=== PATIENT | female | born 1960 | race Caucasian/White ===

== ENCOUNTER 2019-03-24 11:50 | Inpatient (IN) ==
[2019-03-24] MEDS ORDERED: XYLOCAINE 1%/SOD BICARB 20 ML VIAL INFIL ONE (12:07)
[2019-03-24] MEDS ORDERED: DIPHTHERIA/TETANUS/PERTUSSIS 0.5 ML SYR/VIAL IM ONE (12:07)
[2019-03-24] MEDS ORDERED: SODIUM CHLORIDE 0.9% 1000ML 500 ML IV ONE (12:07)
[2019-03-24] MEDS ORDERED: KETOROLAC TROMETHAMINE 15 MG/ML VIAL IV STA (12:10)
[2019-03-24] MEDS ORDERED: ACETAMINOPHEN 500 MG TAB PO STA (12:10)
[2019-03-24] MEDS ORDERED: PIPERACILLIN/TAZOBACTAM 4.5 GM/120 ML BAG IV ONE (12:10)
[2019-03-24] MEDS ORDERED: PIPERACILL/TAZOBAC CONSULT ACTIVE PRN (12:10)
[2019-03-24 12:33] LABS: Basophils # (auto) 0.02 K/uL (0-0.2); Basophils % (auto) 0.2 %; Eosinophils # (auto) 0.39 K/uL (0-0.5); Eosinophils % (auto) 3.5 %; Hematocrit (blood only) 39.1 % (37-47); Hemoglobin 13.5 g/dL (12.0-16.0); Immature Granulocytes # (auto) 0.02 K/uL (0.00-0.02); Immature Granulocytes % (auto) 0.2 %; Lymphocytes # (auto) 1.63 K/uL (1.2-3.4); Lymphocytes % (auto) 14.8 %; Mean Corpuscular Hemoglobin 31.5 pg (25-34); Mean Corpuscular Hgb Conc 34.5 g/dL (32-36); Mean Corpuscular Volume 91.1 fL (80-100); Mean Platelet Volume 9.6 fL (7.4-10.4); Monocytes # (auto) 0.77 K/uL (0.11-0.59); Neutrophils # (auto) 8.17 K/uL (1.4-6.5); Neutrophils % (auto) 74.3 %; Platelet Count 278 K/uL (130-400); RDW Coefficient of Variation 13.7 % (11.5-14.5); RDW Standard Deviation 45.3 fL (36.4-46.3); Red Blood Count 4.29 M/uL (4.2-5.4)
[2019-03-24 12:50] LABS: BUN Creatinine Ratio 9.3 (10-20); Calcium 9.5 mg/dl (8.5-10.1); Creatinine Clr Calc Pharmacy 74.3 ml/min; Est GFR (African American) 80.6; Est GFR (Non-African American) 69.5; Potassium 3.7 mmol/L (3.5-5.1)
--- NOTE | 2019-03-24 13:10 | XRay Report ---
RIGHT SECOND FINGER 4 VIEWS CLINICAL HISTORY: Foreign body assessment. FINDINGS: 4 views of the right second finger are correlated with radiographs of the right hand dated 12/04/2012. The skeletal structures are well mineralized for age. No fracture is seen. Mild erosive ost eoarthritic change is identified involving the distal interphalangeal joint. Mild arthritic change is also seen at the proximal interphalangeal joint. Soft tissue edema is present throughout the finger. No radiodense foreign body is identified. No subcutaneous gas is seen. IMPRESSION: 1. Diffuse soft tissue edema is noted in the second finger with no acute bony abnormality identified. 2. No radiodense foreign body is seen. 3. Osteopenia and degenerative change as above. Electronically signed by: Kulwant Greene M.D. 03/24/2019 1:09 PM
[2019-03-24] MEDS ORDERED: VANCOMYCIN HCL 1,750 MG in SODIUM CHLORIDE 0.9% 500 ML IV ONE (13:30)
[2019-03-24] MEDS ORDERED: VANCOMYCIN CONSULT ACTIVE PRN (13:30)
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
[2019-03-24] MEDS ORDERED: ONDANSETRON INJ 2 MG/ML 2 ML VIAL IV PRN (15:19)
[2019-03-24] MEDS ORDERED: POLYETHYLENE (MIRALAX) 17 GM PACK PO PRN (15:19)
--- NOTE | 2019-03-24 15:47 | Pharmacy Report ---
Pharmacy Abx Initial Consult - Date of Service March 24, 2019 - Pharmacy Dosing Scope Date of Consult: 03/24/19 Consultation requested by: Kulwant Abrams PA-C Pharmacy is consulted to initiate Vancomycin IV dosing therapy, order appropriate labs and adjust drug dose/frequency. - Subjective The patient is a 58 year old F admitted on 03/24/19 14:17. - Objective Height: 5 ft 6 in Weight: 85.6 kg Vital Signs (Past 12hrs): Vital Signs Temp Pulse Pulse Resp BP BP Pulse Ox 03/24/19 15:29 36.6 C 78 18 120/71 98 03/24/19 15:05 84 20 124/80 97 03/24/19 14:07 86 20 144/98 H 94 03/24/19 12:56 85 20 140/90 98 03/24/19 11:52 36.5 C 110 H 18 155/91 H 98 Lab Results (24hrs): Laboratory Tests (24 Hours) 03/24/19 03/24/19 12:22 12:22 WBC 11.00 H Neut # (Auto) 8.17 H Creatinine 0.91 Est Cr Clr Drug Dosing 74.3 Micro Results: 03/24/19 13:26 Gram Stain - Pending Finger,Right Index Deep Wound Culture - Pending - Risk Factors for Resistance * Antimicrobial use within the last 90 days - received rx for Cephalexin 500mg PO TID from [facility] 3 days ago. - Assessment & Plan Assessment 58 year old F with a h/o Chron's disease who presents to the ED with complaints of worsening swelling and pain to her right index finger. 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 The pain and swelling began that evening and has increased since. She was to [facility] two days ago where she was given a prescription for Cephalexin 500mg PO TID. Symptoms have persisted. WBC 11, afebrile No baseline data for renal function, but no evidence of LORENZA. I&D was done in the ED, no hellen pus was noted. Wound culture pending Imaging does not show any signs of osteo involvement, but does show soft tissue swelling. Plan Vancomycin and Zosyn for treatment of right finger cellulitis Vancomycin IV * Estimated PK Parameters: Vd 0.7 L/kg, Stanislaw 0.066 hr-1, t1/2 10.5 hr * Loading dose: 1750 mg (20.4 mg/kg) x1 in ED * Maintenance dose: 1250 mg IV (14.6 mg/kg) every 14 hours * Goal trough level : 10 to 15 mcg/mL * Trough level will be ordered with 4th maintenance dose if drug therapy continues. Piperacillin/tazobactam * 4.5 g bolus administered over 30 minutes, then 3.375 g IV extended infusion every 8 hours for CrCl greater than 20 mL/min. Pharmacy will continue to follow and will adjust dose/frequency as necessary. Thank you.
[2019-03-24] MEDS: PIPERACILLIN/TAZOBACTAM 3.375 GM in DEXTROSE 5% 100 ML IV SCH (17:55)
[2019-03-24] MEDS: HEPARIN SOD 5,000 UNIT/0.5 ML VIAL SQ SCH (20:26)
[2019-03-24] MEDS: ACETAMINOPHEN 325 MG TAB PO PRN (23:01)
[2019-03-25] MEDS: PIPERACILLIN/TAZOBACTAM 3.375 GM in DEXTROSE 5% 100 ML IV SCH ×3 (01:32→17:53)
[2019-03-25] MEDS ORDERED: KETOROLAC TROMETHAMINE 15 MG/ML VIAL IV PRN (01:42)
[2019-03-25] MEDS ORDERED: IBUPROFEN 200 MG TAB PO PRN (01:42)
[2019-03-25] MEDS: VANCOMYCIN HCL 1,250 MG in SODIUM CHLORIDE 0.9% 250 ML IV SCH ×2 (03:27→17:46)
[2019-03-25] MEDS: LEVOTHYROXINE SODIUM 75 MCG TABLET PO SCH (05:44)
[2019-03-25 05:45] LABS: Basophils # (auto) 0.03 K/uL (0-0.2); Basophils % (auto) 0.4 %; Eosinophils # (auto) 0.36 K/uL (0-0.5); Eosinophils % (auto) 4.3 %; Hematocrit (blood only) 35.2 % (37-47); Hemoglobin 11.8 g/dL (12.0-16.0); Immature Granulocytes # (auto) 0.02 K/uL (0.00-0.02); Immature Granulocytes % (auto) 0.2 %; Lymphocytes # (auto) 1.32 K/uL (1.2-3.4); Lymphocytes % (auto) 15.8 %; Mean Corpuscular Hemoglobin 30.7 pg (25-34); Mean Corpuscular Hgb Conc 33.5 g/dL (32-36); Mean Corpuscular Volume 91.7 fL (80-100); Mean Platelet Volume 9.9 fL (7.4-10.4); Monocytes # (auto) 0.54 K/uL (0.11-0.59); Monocytes % (auto) 6.5 %; Neutrophils # (auto) 6.09 K/uL (1.4-6.5); Neutrophils % (auto) 72.8 %; Platelet Count 249 K/uL (130-400); RDW Coefficient of Variation 13.7 % (11.5-14.5); RDW Standard Deviation 45.6 fL (36.4-46.3); Red Blood Count 3.84 M/uL (4.2-5.4); White Blood Count 8.36 K/uL (4.8-10.8)
[2019-03-25 06:15] LABS: BUN Creatinine Ratio 8.2 (10-20); Bilirubin Direct 0.1 mg/dl (0-0.2); Calcium 9.2 mg/dl (8.5-10.1); Creatinine Clr Calc Pharmacy 67.6 ml/min; Est GFR (African American) 71.9; Est GFR (Non-African American) 62.1; Potassium 3.8 mmol/L (3.5-5.1)
[2019-03-25 06:26] LABS: Bilirubin,Total 0.5 mg/dl (0.2-1); Thyroid Stimulating Hormone 2.2 uIu/ml (0.300-4.500); Total Protein 6.7 gm/dl (6.4-8.2)
[2019-03-25] MEDS: TRAMADOL HCL 50 MG TABLET PO PRN ×2 (08:56→15:27)
[2019-03-25] MEDS: HEPARIN SOD 5,000 UNIT/0.5 ML VIAL SQ SCH ×2 (08:57→22:05)
[2019-03-25] MEDS: CITALOPRAM 40 MG TAB PO SCH (08:57)
[2019-03-25] MEDS: ACETAMINOPHEN 325 MG TAB PO PRN (13:05)
--- NOTE | 2019-03-25 19:56 | Hospitalist Progress Note ---
Date of Service March 25, 2019 Assessment & Plan (1) Cellulitis of finger: Soft tissue infection right index finger. No apparent trauma. No improvement despite a few days of cephalexin and 24 hours of IV vanco + piperacillin / tazobactam. May need surgical drainage. Consult Ortho. (2) DVT prophylaxis: Receiving SQ heparin. Ambulate. (3) Discharge planning issues: Anticipated discharge to home. Family Medicine follow-up with Dr. Bhavana Hdez. Subjective Recheck for infection right index finger. Patient seen in their room around 1420. Feels about the same. Persistent pain and swelling right index finger, no improvement since admission. No fever, chills, sweats. Review of Systems: GI- chronic loose stools, unchanged. Physical Exam Constitutional: no acute distress Musculoskeletal: Extremities: + hand abnormality (erythema and swelling right index finger) Results & Data Vital Signs (Past 12 Hours) Vital Signs Temp Pulse Resp BP Pulse Ox 03/25/19 15:11 37.2 C 94 H 18 159/92 H 94 03/25/19 07:59 36.7 C 84 18 132/79 96 Laboratory Results Microbiology 03/24/19 13:26 Finger,Right Index Gram Stain - Final 03/24/19 13:26 Finger,Right Index Deep Wound Culture - Preliminary No growth to date. (1) Cellulitis of finger Laterality: right Qualified Code(s): L03.011 - Cellulitis of right finger
[2019-03-26] MEDS: PIPERACILLIN/TAZOBACTAM 3.375 GM in DEXTROSE 5% 100 ML IV SCH ×2 (01:52→10:07)
[2019-03-26] MEDS: LEVOTHYROXINE SODIUM 75 MCG TABLET PO SCH (05:43)
[2019-03-26 05:49] LABS: Basophils # (auto) 0.06 K/uL (0-0.2); Basophils % (auto) 0.8 %; Eosinophils # (auto) 0.37 K/uL (0-0.5); Eosinophils % (auto) 5.2 %; Hematocrit (blood only) 34.2 % (37-47); Hemoglobin 11.3 g/dL (12.0-16.0); Immature Granulocytes # (auto) 0.01 K/uL (0.00-0.02); Immature Granulocytes % (auto) 0.1 %; Lymphocytes # (auto) 1.31 K/uL (1.2-3.4); Lymphocytes % (auto) 18.5 %; Mean Corpuscular Hemoglobin 30.2 pg (25-34); Mean Corpuscular Volume 91.4 fL (80-100); Mean Platelet Volume 9.4 fL (7.4-10.4); Monocytes # (auto) 0.48 K/uL (0.11-0.59); Monocytes % (auto) 6.8 %; Neutrophils # (auto) 4.85 K/uL (1.4-6.5); Neutrophils % (auto) 68.6 %; Platelet Count 274 K/uL (130-400); RDW Coefficient of Variation 13.6 % (11.5-14.5); RDW Standard Deviation 45.3 fL (36.4-46.3); Red Blood Count 3.74 M/uL (4.2-5.4); White Blood Count 7.08 K/uL (4.8-10.8)
[2019-03-26 06:18] LABS: BUN Creatinine Ratio 11.6 (10-20); Calcium 8.9 mg/dl (8.5-10.1); Creatinine Clr Calc Pharmacy 70.4 ml/min; Est GFR (African American) 75.6; Est GFR (Non-African American) 65.2; Potassium 3.8 mmol/L (3.5-5.1)
[2019-03-26] MEDS: VANCOMYCIN HCL 1,250 MG in SODIUM CHLORIDE 0.9% 250 ML IV SCH (07:53)
[2019-03-26] MEDS: CITALOPRAM 40 MG TAB PO SCH (08:52)
[2019-03-26] MEDS: TRAMADOL HCL 50 MG TABLET PO PRN ×2 (08:52→15:31)
[2019-03-26] MEDS: HEPARIN SOD 5,000 UNIT/0.5 ML VIAL SQ SCH (08:55)
--- NOTE | 2019-03-26 10:54 | Hospitalist Progress Note ---
Date of Service March 26, 2019 Assessment & Plan (1) Cellulitis of finger: Soft tissue infection right index finger vs possible gout. No apparent trauma. No improvement despite a few days of cephalexin and 48 hours of IV vanco + piperacillin / tazobactam. May need surgical drainage or aspiration for gram stain, cultures, crystals. Ortho consulted. Check serum uric acid. (2) DVT prophylaxis: Receiving SQ heparin. Ambulate. (3) Discharge planning issues: Anticipated discharge to home. Family Medicine follow-up with Dr. Bhavana Hdez. Subjective Recheck for pain and swelling of right index finger. Not much change overnight. No drainage. No fever. No nausea or vomiting. No change of bowel habits. Physical Exam Constitutional: no acute distress Musculoskeletal: Extremities: + hand abnormality (erythema and swelling right index finger) Results & Data Vital Signs (Past 12 Hours) Vital Signs Temp Pulse Resp BP Pulse Ox 03/26/19 07:42 36.9 C 75 14 122/80 94 (1) Cellulitis of finger Laterality: right Qualified Code(s): L03.011 - Cellulitis of right finger
[2019-03-26] MEDS: ACETAMINOPHEN 325 MG TAB PO PRN (13:56)
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
--- NOTE | 2019-03-26 21:22 | Discharge Summary ---
Date of Service Date of Admission: 03/24/19 Date of Discharge: 03/26/19 Admission HPI Per Admitting Provider Attending: Dr. Toure This is a 58-year-old female with past medical history of osteoarthritis, hypothyroidism, and Crohn's disease that presents with an infection of the right pointer finger. Etiology of infection is unknown. Patient increasing pain and presented to urgent care 3 days ago where they prescribed Keflex. She has not improved and so this morning she reported the emergency department. She is seen by Dr. Lemos who performed an I&D and only got blood and no pus. She was started on Zosyn and vancomycin. Blood cultures were obtained and are pending. Patient will be admitted to the medical unit for further IV treatment. Patient states that she has had no fever, chills, sweats, rigors. No nausea or vomiting. No diarrhea. Patient has not had any bleeding from the finger but has had increased swelling of the finger in all 3 joints of the finger. Due to the pain that she is experiencing she has been taking 400 mg of ibuprofen 2-3 times per day. Patient typically takes 400 mg of ibuprofen daily for osteoarthritis. Patient states that she has had no other recent illness and is never had an infection such as this before. She is a non-smoker and has 1-2 beers per year. She has no other acute complaints. Principal Diagnosis tenosynovitis right index finger Discharge Data Allergies Allergy/AdvReac Type Severity Reaction Status Date / Time No Known Allergies Allergy Verified 09/11/15 16:48 Consultations 03/24/19 13:42 ED Decision to Admit Stat 03/25/19 14:55 Consult Orthopedic Surgery Routine Hospital Course (1) Cellulitis of finger: Soft tissue infection right index finger vs possible gout. No apparent trauma. No improvement despite a few days of cephalexin and 48 hours of IV vanco + piperacillin / tazobactam. May need surgical drainage or aspiration for gram stain, cultures, crystals. Serum uric acid level normal. Ortho consulted. Clemmons to have tenosynovitis. Discharge on amoxicillin / clavulanic acid recommended. Follow-up with Ortho in clinic in 1-2 days. (2) DVT prophylaxis: Received SQ heparin. Ambulate. (3) Discharge planning issues: Discharge to home. Follow-up with [facility] in 1-2 days. Family Medicine follow-up with Dr. Bhavana Hdez. Total Time Total Time Spent Total Time Spent (In Minutes): 20 Discharge Plan Discharge Items Patient Disposition: Home - Self-Care Reason For Visit: INFECTION OF SECOND DIGIT OF RT HAND Discharge Diagnosis: tenosynovitis right index finger Activity: Resume your previous activity Non-emergency contact: Primary Care Provider, Hospitalist and Surgeon Call non-emergency contact if: you have any medication questions, your symptoms worsen and your temperature is above 101 Follow-up/Referrals: Bhavana Hdez DO [Primary Care Provider] - Mitchell Alexandra [Physician] - (Please call office for appointment in 1-2 days.) Diet: Regular Addtl Attending Provider Instructions: MEDICATION CHANGES: Take amoxicillin / clavulanic acid (Augmentin) twice a day with food for 1-2 weeks. SUMMARY OF TEST RESULTS: Wound culture was negative. Uric acid level was normal. RECOMMENDATIONS FOR FOLLOW-UP: Follow-up with Orthopedic Surgery as recommended. OTHER INSTRUCTIONS: Seek medical attention if you have: * temperature above 101 * chest pain or trouble breathing * abdominal pain, nausea, vomiting * diarrhea, dark stools or bloody stools * worsening pain or swelling of finger * any unanswered questions or concerns Call 911 if symptoms are severe. Please take good care of yourself. Call if you have any questions or problems. You can reach a [facility] hospitalist on duty at [facility] 24 hours a day by calling [phone]. My cell # is [phone]. Stand-Alone Forms: My [facility], Smoking Cessation Medications and DC Order Prescriptions: New amoxicillin-pot clavulanate 875-125 mg tablet 1 tab PO BID Qty: 14 RF: 1 Continued citalopram 40 mg tablet 40 mg PO DAILY RF: 0 levothyroxine 75 mcg tablet 75 mcg PO QAM RF: 0 Discontinued cephalexin 500 mg capsule 500 mg PO TID RF: 0 Discharge Orders: Discharge Order (Routine); Ordered 03/26/19 Ordered By: Karthikeyan Alamo/Other Patient Handouts: Amoxicillin Trihydrate Oral tablet Admission Data Admit Date/Time: 03/24/19 14:17 Attending Provider: Karthikeyan Aguilar Admit Provider: Sonny Toure Primary Care Provider: Bhavana Hdez Other Providers: Sonny Toure ; Calvin Chance Other Interventions: Discharge Summary Assessment (RN) Last Done: 03/26/19 17:23 DC Date/Time DO NOT enter until pt leaves facility: 03/26/19 17:59
[2019-03-26] MEDS ORDERED: VANCOMYCIN TROUGH ONE (21:30)
== END 2019-03-26 17:59 | disposition home or self-care (01) | DRG 558 ==
LOC: ED 11:50 → SUATTDRO 14:17 → 3E 14:17

== ENCOUNTER 2019-03-28 13:06 | Inpatient (IN) ==
[~2019-03-28 13:06] MED LIST: CEFAZOLIN 1000MG 1,000 MG/7.5 ML SYR IV SCH; CEFAZOLIN 2000MG 2,000 MG/15 ML SYR IV SCH; SODIUM CHLORIDE 0.9% 1,000 ML IV SCH
--- NOTE | 2019-03-28 14:49 | History and Physical Report ---
DATE OF ADMISSION: 03/28/2019 CHIEF COMPLAINT: Right index finger pain and swelling. HISTORY OF PRESENT ILLNESS: This 58-year-old white female presents to the office with complaints of right index finger pain and swelling. The patient noticed some redness in the finger a week ago. On , the finger developed significant swelling and pain. She was seen by her PCP at that time and placed on Keflex. Pain, redness, and streaking worsened. She was seen in the ED on Tuesday and was admitted for IV antibiotics. She was discharged on Tuesday with the understanding that she would see orthopedic surgery this week for reevaluation. She states that she did go to work last night at the [employer] and the finger developed additional areas of discoloration under the skin. She is having difficulty with motion. Right hand dominant. No prior history of similar episode. She is being admitted for a right index finger infection requiring incision and drainage today. No numbness or tingling, though she does note decreased subjective sensation to the index finger. No other fingers are involved. Radiographic imaging has been obtained. She is currently on Augmentin twice per day. PAST MEDICAL HISTORY: Significant for recent cold symptoms 2 weeks ago, anxiety, osteoarthritis, and hypothyroidism. PAST SURGICAL HISTORY: Appendectomy, bowel resection, cholecystectomy, hysterectomy, laparoscopy for adhesion removal, right hand little finger surgery. ALLERGIES: NKDA. CURRENT MEDICATIONS: Levothyroxine 75 mcg daily, Celexa 40 mg daily. FAMILY HISTORY: Noncontributory. SOCIAL HISTORY: The patient is single. No tobacco use. Occasional ETOH use. REVIEW OF SYSTEMS: A total of 10 systems are reviewed and are significant only for the above-stated conditions. PHYSICAL EXAMINATION: VITAL SIGNS: Height 168 cm, weight 88 kilograms. GENERAL: A well-developed, well-nourished middle-aged white female in no obvious discomfort. Sitting on a chair. Alert and oriented. SKIN: Warm and dry with good turgor. No rashes. The patient does have significant erythema and edema in the index finger. She has areas of pus visible underneath the skin. The DIP joint is significantly swollen. She has an eschar area present over the ulnar border of the DIP joint. Areas of pus are visible under the radial border. She has no other fingers involved. HEENT: Normocephalic, atraumatic. Eyes PERRLA, EOMI. Nares patent bilaterally without turbinate enlargement. Oropharynx without erythema or exudate. No lesions noted. Uvula midline. Oral mucosa moist. Fair dentition. Multiple teeth are missing. HEART: RRR. No MGR. LUNGS: Clear to auscultation bilaterally. No crackles, rhonchi or wheezing. Good air movement. ABDOMEN: Mildly obese. Bowel sounds present x4, soft, nontender. No organomegaly. No masses. MUSCULOSKELETAL: Right index finger has intact motion at the MCP and PIP joints. There is very limited motion at the DIP joint secondary to swelling. No pain with palpation over the hand or majority of the finger. She does have pain over the middle phalanx and distal phalanx with palpation. NEUROLOGIC: Cranial nerves II through XII are intact. Gross sensation is intact across each of the fingers of the right hand, though she has decreased subjective sensation across the index finger. Capillary refill is equal for each of the fingers. DATA: Radiographic imaging previously obtained shows significant osteoarthritic changes of the index finger. IMPRESSION: Right index finger infection. PLAN: Approximately 20 minutes was spent with the patient reviewing operative procedure, postoperative recovery, physical therapy requirements and medication use. Postoperative prescriptions will be decided based on her tissue cultures. She is n.p.o. at this point. She will be admitted with anticipation of surgery this evening. Preoperative Ancef dose has been ordered. MTDD
[2019-03-28 15:18] LABS: Hematocrit (blood only) 35.3 % (37-47); Hemoglobin 11.9 g/dL (12.0-16.0); Mean Corpuscular Hemoglobin 30.1 pg (25-34); Mean Corpuscular Volume 89.4 fL (80-100); Platelet Count 360 K/uL (130-400); RDW Coefficient of Variation 13.2 % (11.5-14.5); RDW Standard Deviation 43.4 fL (36.4-46.3); Red Blood Count 3.95 M/uL (4.2-5.4); White Blood Count 9.03 K/uL (4.8-10.8)
[2019-03-28 15:20] LABS: Mean Corpuscular Hgb Conc 33.7 g/dL (32-36)
[2019-03-28 15:46] LABS: BUN Creatinine Ratio 11.1 (10-20); Calcium 9.6 mg/dl (8.5-10.1); Creatinine Clr Calc Pharmacy 75.9 ml/min; Est GFR (African American) 82.8; Est GFR (Non-African American) 71.4; Potassium 3.5 mmol/L (3.5-5.1)
[2019-03-28] MEDS ORDERED: LIDOCAINE HCL 2% 2 ML VIAL/AMP(20MG/ML) INFIL ONE (16:12)
[2019-03-28] MEDS ORDERED: PROPOFOL IV EMULSION 10 MG/ML 20 ML VIAL IV ONE ×2 (16:12→18:23)
[2019-03-28] MEDS ORDERED: LIDOCAINE HCL 1% 20 ML VIAL ONE ×2 (16:18→17:19)
[2019-03-28] MEDS ORDERED: BUPIVACAINE 0.5 % 5 MG/1 ML MPF 30ML VIAL ONE (17:01)
[2019-03-28] MEDS ORDERED: ATROPINE SULFATE 0.1 MG/ML 10ML SYR IV PRN (17:01)
[2019-03-28] MEDS ORDERED: ePHEDrine sulfate 50 MG/ML AMP IV PRN (17:01)
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
[2019-03-28] MEDS ORDERED: BACITRACIN INJ 50,000 UNIT VIAL ONE (17:02)
[2019-03-28] MEDS ORDERED: fentaNYL citrate 100 MCG/2 ML VIAL ONE ×2 (17:05→17:48)
[2019-03-28] MEDS ORDERED: MIDAZOLAM HCL 1 MG/ML 2ML VIAL ONE ×2 (17:05→17:28)
[2019-03-28] MEDS ORDERED: ONDANSETRON INJ 2 MG/ML 2 ML VIAL ONE (18:23)
--- NOTE | 2019-03-28 18:43 | Operative Report ---
Post Operative Report Pre & Post Diagnosis Operation Date: 03/28/19 09:40 Pre-Op Diagnosis: INFECTION OF FINGER ON RIGHT HAND Post-Op Diagnosis: INFECTION OF FINGER ON RIGHT HAND I identified the patient and participated in the time-out.: Yes Procedure Operation Date: 03/28/19 09:40 Actual Procedures p Right Index Finger Incision and Drainage(Right) - Robert Walton MD Surgeon Robert Walton MD Clip Wrapper MD Nita Estimated Blood Loss 3 Findings Consistent with Post-Op Diagnosis Specimens soft tissue Complications none Disposition Accompanied Patient To Recovery: Yes Disposition: Recovery Room Description of Procedure Supine, hand table, tourniquet, time-out Right Index Finger Incision and Drainage Please see Dr Walton's procedure notes for specific details I was present throughout the case, assisted for wound closure and transferred the patient to PACU in stable condition. I attest to the content of the Intraoperative Record and any orders documented therein. Any exceptions are noted below.
[2019-03-28] MEDS: fentaNYL citrate 100 MCG/2 ML VIAL IV PRN ×3 (18:48→18:58)
--- NOTE | 2019-03-28 18:49 | Anesthesiology Progress Note ---
Date of Service March 28, 2019 Anesthesia Post Procedure Vital Signs Vital Signs: Temp Pulse Pulse Resp BP Pulse Ox 03/28/19 16:42 36.7 C 79 18 157/95 H 95 03/28/19 14:42 88 03/28/19 14:31 36.7 C 18 158/84 H 95 Pain Intensity Right Finger: Pain Intensity: 2 Transfer of Care Handoff Completed per policy Notes Mental Status: alert / awake / arousable and participated in evaluation Patient Amnestic to Procedure: Yes Nausea / Vomiting: adequately controlled Pain: adequately controlled Airway Patency, RR, SpO2: stable & adequate BP & HR: stable & adequate Hydration State: stable & adequate Anesthetic Complications: no major complications apparent and Pt Satisfied with anesthetic care
--- NOTE | 2019-03-28 18:53 | Operative Report ---
Post Operative Report Pre & Post Diagnosis Operation Date: 03/28/19 09:40 Pre-Op Diagnosis: INFECTION OF FINGER ON RIGHT HAND Post-Op Diagnosis: INFECTION OF FINGER ON RIGHT HAND I identified the patient and participated in the time-out.: Yes Procedure Operation Date: 03/28/19 09:40 Actual Procedures p Right Index Finger Incision and Drainage(Right) - Robert Walton MD Surgeon Robert Walton MD Product Info Specialist MD Nita Estimated Blood Loss 3 Findings Consistent with Post-Op Diagnosis Specimens Culture Drains Iodoform gauze wick Anesthesia Type MAC Regional Complications none Disposition Accompanied Patient To Recovery: No Disposition: Recovery Room Indications Patient is 58. She has had a 5-day history of right index finger redness swelling and pain. She is been seen at [facility] and been admitted to the hospital for intravenous antibiotics. She presented to my clinic today with signs and symptoms consistent with an abscess or septic arthritis of the right index finger distal interphalangeal joint area. I recommended operative intervention and she is agreed to proceed. Description of Procedure Informed consent obtained. Patient identified. Preprocedural timeout was performed. Preop dose of IV antibiotics given. Positioned supine with right arm on hand table. Tourniquet on right upper arm. Anesthesiologist administered wrist block and sedation. Examination demonstrated swelling over the dorsum of the DIP joint and on the radial side there was some fluid underneath the skin which had lifted off of the epidermis. The area surrounding the dorsal distal interphalangeal joint was red and markedly swollen. There is mild swelling of the remainder of the finger. Limb exsanguinated with gravity and tourniquet inflated to 250 mmHg. This was done after routine prep and drape. No discrete abscess was palpated. DVT prophylaxis with early mobility. Midline longitudinal incision was made about 1-1/2 to 2 cm in length. The extensor tendon was identified and full-thickness flaps were elevated. Dissection was performed radially to the level of where the sinus was. I did not encounter any hellen purulence. The extensor tendon was identified medially and laterally and elevated for protection. Dissection was also performed in the subcutaneous tissues between the extensor tendon and the subcutaneous tissues laterally. In the area underneath the radial subcutaneous fluid collection a culture was obtained and this area also included the joint. The dorsal capsule was excised. In order to prove access to the joint the dorsal osteophyte was resected. Some necrotic fat or loculated pus was noted. The skin over the sinus area radially was a removed along with elevated skin laterally as well. After obtaining the culture and exposing the joint and debriding the joint capsule the entire area was irrigated with proximally 500 cc of sterile saline containing antibiotics. A iodoform gauze wick was then placed under the tendon exiting out the sinus. The skin was closed with interrupted 4-0 nylon horizontal mattress stitches. Take it was hemostasis was performed prior to wound closure after letting the tourniquet down after approximately 30 minutes of inflation. The joint itself appeared to be normal other than the large dorsal osteophyte and degenerative change. Thing could be expressed by squeezing volarly. Saw sterile dressing Xeroform 2 x 2's gauze wrap and Coban applied. She was awakened from anesthesia without difficulty and taken to the recovery room in stable condition. Specimens were the culture. Counts were correct blood loss was approximately 3 cc. At the conclusion the operation spoke patient's family and informed them of my findings. Detailed postoperative instructions were given. Plan is to elevate intravenous antibiotics follow-up on cultures remove drain. Differential diagnosis would include infection septic arthritis subcutaneous abscess gout. Pseudogout. The culture was also sent for crystal analysis. I attest to the content of the Intraoperative Record and any orders documented therein. Any exceptions are noted below.
[2019-03-28] MEDS ORDERED: ALUMINUM/MAGNESIUM SUSP 30 ML UDC PO PRN (19:42)
[2019-03-28] MEDS ORDERED: ONDANSETRON INJ 2 MG/ML 2 ML VIAL IV PRN (19:42)
[2019-03-28] MEDS ORDERED: MAGNESIUM HYDROXIDE SUSP 30 ML UDC PO PRN (19:42)
[2019-03-28] MEDS ORDERED: KETOROLAC 30 MG/ML VIAL IV PRN (19:42)
[2019-03-28] MEDS ORDERED: NALOXONE HCL 0.4 MG/1 ML VIAL/CARP IV PRN (19:42)
[2019-03-28] MEDS ORDERED: METOCLOPRAMIDE HCL INJ 5 MG/ML 2 ML VIAL IV PRN (19:42)
[2019-03-28] MEDS ORDERED: ACETAMINOPHEN 500 MG TAB PO PRN (19:42)
[2019-03-28] MEDS ORDERED: BISACODYL 10 MG SUPP PR PRN (19:42)
[2019-03-28] MEDS ORDERED: HYDROmorphone INJ 0.5 MG/0.5 ML SYR IV PRN (19:42)
[2019-03-28] MEDS: DOCUSATE SODIUM 100 MG CAP PO SCH (20:19)
[2019-03-28] MEDS: SENNA 8.6 MG TAB PO SCH (20:19)
[2019-03-28] MEDS: SODIUM CHLORIDE 0.9% 1000ML 1,000 ML IV SCH (21:32)
[2019-03-29] MEDS: CEFAZOLIN 1000MG 1,000 MG/7.5 ML SYR IV SCH ×3 (02:10→18:13)
[2019-03-29] MEDS: OXYCODONE HCL IR 5 MG TAB (IMMEDIATE RELEASE) PO PRN ×2 (02:12→07:30)
[2019-03-29] MEDS: SODIUM CHLORIDE 0.9% 1000ML 1,000 ML IV SCH (05:35)
[2019-03-29] MEDS: LEVOTHYROXINE SODIUM 75 MCG TABLET PO SCH (05:35)
[2019-03-29 06:12] LABS: Basophils # (auto) 0.04 K/uL (0-0.2); Basophils % (auto) 0.5 %; Eosinophils # (auto) 0.54 K/uL (0-0.5); Eosinophils % (auto) 7.1 %; Hematocrit (blood only) 33.1 % (37-47); Hemoglobin 10.9 g/dL (12.0-16.0); Immature Granulocytes # (auto) 0.03 K/uL (0.00-0.02); Immature Granulocytes % (auto) 0.4 %; Lymphocytes # (auto) 1.65 K/uL (1.2-3.4); Lymphocytes % (auto) 21.8 %; Mean Corpuscular Hemoglobin 30.2 pg (25-34); Mean Corpuscular Hgb Conc 32.9 g/dL (32-36); Mean Corpuscular Volume 91.7 fL (80-100); Monocytes # (auto) 0.54 K/uL (0.11-0.59); Monocytes % (auto) 7.1 %; Neutrophils # (auto) 4.76 K/uL (1.4-6.5); Neutrophils % (auto) 63.1 %; Platelet Count 335 K/uL (130-400); RDW Coefficient of Variation 13.7 % (11.5-14.5); RDW Standard Deviation 45.7 fL (36.4-46.3); Red Blood Count 3.61 M/uL (4.2-5.4); White Blood Count 7.56 K/uL (4.8-10.8)
[2019-03-29] MEDS: DOCUSATE SODIUM 100 MG CAP PO SCH ×2 (08:43→20:26)
[2019-03-29] MEDS: CITALOPRAM 40 MG TAB PO SCH (08:43)
[2019-03-29] MEDS: TRAMADOL HCL 50 MG TABLET PO PRN (15:09)
--- NOTE | 2019-03-29 16:35 | Progress Note ---
DATE: 03/29/2019 Finger feels about the same. No major changes. She is afebrile. Her vital signs are stable. She has a normal white blood cell count. She is mildly anemic. Labs are noted. Microbiology shows no growth to date. Crystals are not yet resulted. Dressing is changed. Wound is benign. There is no active bleeding. Remains tender, red and swollen. Also stiff because of the mobility. Cleaned and redressed. Xeroform gauze and Coban. IMPRESSION: Infection of right index finger versus inflammatory arthritis. PLAN: Findings of surgery are discussed. Somewhat surprising regarding the surgical findings and a negative culture. Possible that the antibiotics that she was on previously have at least partially treated the infection and we are not able to grow anything. For now, I think continue elevation, icing, IV antibiotics, anti-inflammatories. We will follow up on cultures tomorrow and reassess finger. If improving, we will consider discharge. I will be out of town and one of my colleagues will assume her care. She is aware.
[2019-03-29] MEDS: SENNA 8.6 MG TAB PO SCH (20:26)
[2019-03-30] MEDS: OXYCODONE HCL IR 5 MG TAB (IMMEDIATE RELEASE) PO PRN (00:47)
[2019-03-30] MEDS: CEFAZOLIN 1000MG 1,000 MG/7.5 ML SYR IV SCH ×2 (02:12→10:51)
[2019-03-30] MEDS: LEVOTHYROXINE SODIUM 75 MCG TABLET PO SCH (06:36)
[2019-03-30 07:34] VITALS: BP 128/80; TEMP 97.9; O2SAT 93
[2019-03-30] MEDS: CITALOPRAM 40 MG TAB PO SCH (07:57)
[2019-03-30] MEDS: DOCUSATE SODIUM 100 MG CAP PO SCH (07:57)
[2019-03-30] MEDS: TRAMADOL HCL 50 MG TABLET PO PRN (09:45)
--- NOTE | 2019-03-30 13:14 | Orthopedic Progress Note ---
Date of Service March 30, 2019 Assessment & Plan (1) Status post incision and drainage: Patient's dressing was changed by me. She will leave this in place until Tuesday. She will see Dr. Walton on Tuesday afternoon for reexamination. Call Tuesday morning for an appointment. Start Aleve 2 tablets twice a day with food. Supplement with Tylenol for any breakthrough pain. Prescription was given for Ultram 50 mg to be used every 6 hours as needed for more severe pain. Prescription was also given for Keflex 500 mg 4 times daily x7 days. Call the office with any other concerns. She will need to keep the dressings dry. Subjective Patient is seen in her room this afternoon. She states she is anxious to go home. She has no discomfort at this time. She feels well. No other complaints. She states she did bump the finger earlier today and it was hurting then, but has calm down. No further drainage. Review of Systems Review of Systems: Unchanged from preop Physical Exam Physical Exam: General: Well-developed, well-nourished, middle-aged white female, in no acute distress. Sitting on her bed. Alert and oriented. Skin: Warm and dry with good turgor. No rashes or lesions. No ecchymosis or erythema. Edema remains at the index finger middle and distal phalanges. No active drainage. The patient is not diaphoretic. No abrasions. Musculoskeletal: Patient has intact motor function to her fingers. Motion at the index finger DIP joint was not attempted due to her dressing. Neurologic: Gross sensation is intact across the digits by soft touch. Results & Data Vital Signs (Past 12 Hours) Vital Signs Temp Pulse Resp BP Pulse Ox 03/30/19 07:32 36.6 C 73 16 128/80 93 Laboratory Results Gram stain is finalized without organisms. Culture remains preliminary. No organisms are identified.
[2019-03-30 13:27] VITALS: PULSE 88
== END 2019-03-30 14:36 | disposition home or self-care (01) | DRG 603 ==
LOC: 3E 13:39